=== PATIENT | male | born 1945 | race Caucasian/White ===

== ENCOUNTER 2022-08-14 07:07 | Emergency (ER) | payer MEDICARE ==
[2022-08-14] VITALS (9 sets, daily range): BP systolic 134–167; BP diastolic 54–77
[~2022-08-14] VITALS: Ht 188 cm; Wt 100.0 kg
[2022-08-14 07:48] LABS: BASO% 0.4 % (0-3); EOS% 2.1 % (0-8); HEMATOCRIT 45.4 % (39.0-50.0); HEMOGLOBIN 15.1 g/dl (14.0-18.0); IMMATURE GRANULOCYTES 0.3 % (0.0-5.0); LYMPH% 10.7 % (15-41); MEAN CELL VOLUME 89.4 fL CALC (80.0-100.0); MEAN CORPUSCULAR HGB 29.7 pG CALC (26.0-32.0); MEAN CORPUSCULAR HGB CONC 33.3 g/dL CAL (32.0-36.0); MONO% 8.1 % (2-13); NEUT# 8.94 thou/uL (1.82-7.42); NEUT% 78.4 % (42-76); RED BLOOD COUNT 5.08 mill/uL (4.70-6.10); RED CELL DISTRI WIDTH 13.2 % (11.5-15.5)
[2022-08-14 08:15] LABS: ALBUMIN 4.4 g/dL (3.2-5.0); ALKALINE PHOSPHATASE 81 u/l (38-126); ANION GAP 13 (6-22 (CALC)); BILIRUBIN, TOTAL 0.5 mg/dL (0.0-1.4); BUN 37 mg/dL (8-23); BUN/CREATININE RATIO 24 (12-20 (CALC)); CARBON DIOXIDE 23 mmol/l (22-30); CHLORIDE 108 mmol/l (95-108); CREATININE 1.5 mg/dL (0.7-1.3); GFR FOR AFR.AMER. 55 ML/MIN (>=60 (CALC)); GFR OTHER RACES 45 ML/MIN (>=60 (CALC)); LIPASE 182 u/l (23-300); POTASSIUM 4.7 mmol/l (3.5-5.1); SGOT/AST 35 u/l (19-48); SODIUM 139 mmol/l (137-146); TOTAL PROTEIN 7.2 g/dL (6.3-8.2)
[2022-08-14] MEDS ORDERED: PROTONIX40 M2 PO (09:10)
[2022-08-14] MEDS ORDERED: EZALLOR SPRINKLE5 MG (09:14)
[2022-08-14] MEDS ORDERED: ALBUTEROL SUL0.083 % IN (09:14)
[2022-08-14] MEDS ORDERED: LISINOPRIL2.5 MG PO (09:15)
== END 2022-08-14 09:16 | disposition home or self-care (01) ==
LOC: ED 07:07
PROVIDERS: Family Medicine
DX: R10.13 Epigastric pain (principal)